=== PATIENT | female | born 1955 | race African-American/Black ===

== ENCOUNTER 2024-03-27 21:40 | Emergency (ER) | payer OTHER ==
[2024-03-27 22:03] VITALS: TEMP 97.9; BMI 26.2
[2024-03-27] MEDS ORDERED: ACETAMINOPHEN 325 MG TABLET (FP) ONE (22:40)
[2024-03-27] MEDS: ACETAMINOPHEN 325 MG TABLET (FP) PO ONE (22:59)
[2024-03-27 23:31] LABS: HEMOGLOBIN 10.1 GM/dL (10.7-15.3); WHITE BLOOD COUNT 5.8 K/mm3 (4.0-10.0)
[2024-03-27 23:33] LABS: BASO % 0.7 % (0-2.0); EOS % 2.2 % (0-4.5); LYMPH % 8.3 % (8-40); MCH 28.7 pg (25.7-33.7); MCHC 32.6 g/dl (32.0-36.0); MEAN CELL VOLUME 87.9 fl (80-96); MEAN PLT VOLUME 9.7 fl (7.5-11.1); MONO % 10.8 % (3.8-10.2); PLATELET COUNT 141 10^3/uL (134-434); RBC 3.52 M/mm3 (3.60-5.2)
[2024-03-27 23:49] LABS: CHLORIDE 99 mmol/L (98-107); SODIUM 130 mmol/L (136-145)
[2024-03-27 23:50] LABS: CALCIUM 8.4 mg/dL (8.5-10.1)
[2024-03-27 23:51] LABS: ALBUMIN 3.2 g/dl (3.4-5.0); ANION GAP 12 mmol/L (4-13); BLOOD UREA NITROGEN 117.6 mg/dL (7-18); CO2 20 mmol/L (21-32); GLUCOSE,RANDOM 179 mg/dL (74-106); POTASSIUM 8.6 mmol/L (3.5-5.1)
[2024-03-27 23:54] LABS: CREATININE 8.3 mg/dL (0.55-1.3); SGOT/AST 103 U/L (15-37); SGPT/ALT 82 U/L (13-61)
[2024-03-27 23:56] LABS: BILIRUBIN,TOTAL 0.5 mg/dL (0.2-1)
[2024-03-27 23:57] LABS: ALK PHOS 134 U/L (45-117)
[2024-03-28 01:35] LABS: INR 1.1 (0.83-1.09); PROTHROMBIN TIME (PATIENT) 12.6 SEC (9.7-13.0)
[2024-03-28 01:38] LABS: ACTIVATED PTT 29.7 SECONDS (25.2-36.5)
[2024-03-28 01:45] LABS: POTASSIUM 4.7 mmol/L (3.5-5.1); SODIUM 137 mmol/L (136-145)
[2024-03-28 01:46] LABS: CALCIUM 8.8 mg/dL (8.5-10.1)
[2024-03-28 01:47] LABS: ALBUMIN 3.2 g/dl (3.4-5.0); CO2 23 mmol/L (21-32); GLUCOSE,RANDOM 132 mg/dL (74-106)
[2024-03-28 01:51] LABS: SGOT/AST 52 U/L (15-37); SGPT/ALT 72 U/L (13-61)
[2024-03-28 01:52] LABS: BILIRUBIN,TOTAL 0.4 mg/dL (0.2-1); TOT PROT 8.9 g/dl (6.4-8.2)
[2024-03-28 01:53] LABS: ALK PHOS 122 U/L (45-117)
[2024-03-28 01:59] LABS: ANION GAP 14 mmol/L (4-13); BLOOD UREA NITROGEN 122.5 mg/dL (7-18); CHLORIDE 99 mmol/L (98-107); CREATININE 8.3 mg/dL (0.55-1.3)
[2024-03-28] MEDS ORDERED: oxyCODONE HCL 5 MG TABLET ONE (06:38)
[2024-03-28] MEDS: oxyCODONE HCL 5 MG TABLET PO ONE (06:43)
[2024-03-28 11:06] VITALS: PULSE 84; RESP 20
[2024-03-28 11:39] VITALS: BP 182/85
== END 2024-03-28 11:43 | disposition home or self-care (01) ==
LOC: JER 21:40
DX: R07.89 Other chest pain (principal); M25.552 Pain in left hip; M25.572 Pain in left ankle and joints of left foot; I12.0 Hypertensive chronic kidney disease with stage 5 chronic kidney disease or end stage renal disease; N18.6 End stage renal disease; V00.811A Fall from moving wheelchair (powered), initial encounter
CPT/HCPCS: 36415; 70450-TC; 71045-TC-FY; 72125-TC; 73521-TC-FY; 73552-TC-LT-FY; 73562-TC-LT-FY; 73610-TC-LT-FY; 80053; 84484; 85025; 85610; 85730; 86850; 86870; 86880; 86900; 86901; 86902; 93005; 93010; 99285-25